=== PATIENT | male | born 1960 | race Two or more races ===

== ENCOUNTER 2017-06-14 11:48 | Inpatient (IN) | payer OTHER ==
[~2017-06-14] VITALS: Ht 177.8 cm; Wt 134.3 kg
[~2017-06-14 11:48] MED LIST: COREG CR10 MG PO; COUMADIN1 MG PO; ENALAPRIL MALE2.5 MG PO; FOLTX TABLET1 TAB PO; INDUR; LASIX20 MG PO; SIMBASTATIN; ZOCOR5 MG PO
[2017-06-14] MEDS ORDERED: METFORMIN HCL500 M2 (12:30)
== END 2017-06-19 10:38 | disposition home or self-care (01) | DRG 202 ==
LOC: ER 11:48 → MEDJ 06-15 15:18 → SEC-K 06-15 15:18 → MEDJ 06-15 15:45
PROC: 3E0F7GC Introduction of Other Therapeutic Substance into Respiratory Tract, Via Natural or Artificial Opening (ICD-10-PCS; principal; 2017-06-15)
PROC: B246ZZZ Ultrasonography of Right and Left Heart (ICD-10-PCS; 2017-06-15)
DX: J45.51 Severe persistent asthma with (acute) exacerbation (principal); J44.1 Chronic obstructive pulmonary disease with (acute) exacerbation; J44.0 Chronic obstructive pulmonary disease with (acute) lower respiratory infection; J20.9 Acute bronchitis, unspecified; I10 Essential (primary) hypertension; E66.01 Morbid (severe) obesity due to excess calories; E78.4 Other hyperlipidemia; I25.10 Atherosclerotic heart disease of native coronary artery without angina pectoris; E11.9 Type 2 diabetes mellitus without complications; Z86.73 Personal history of transient ischemic attack (TIA), and cerebral infarction without residual deficits; G47.33 Obstructive sleep apnea (adult) (pediatric); I48.0 Paroxysmal atrial fibrillation

== ENCOUNTER 2017-08-30 08:03 | Inpatient (IN) | payer OTHER ==
[~2017-08-30] VITALS: Ht 177.8 cm; Wt 131.5 kg
[~2017-08-30 08:03] MED LIST changes: +METFORMIN HCL500 M2
[2017-08-30] MEDS ORDERED: BREO ELLIPTA I1 EACH (08:21)
== END 2017-09-05 14:11 | disposition home or self-care (01) | DRG 190 ==
LOC: ER 08:03 → ICU-2 21:52 → SEC-K 09-03 09:12 → MEDJ 09-03 09:14
PROC: 4A033R1 Measurement of Arterial Saturation, Peripheral, Percutaneous Approach (ICD-10-PCS; principal; 2017-08-30)
PROC: BW21Y0Z Computerized Tomography (CT Scan) of Abdomen and Pelvis using Other Contrast, Unenhanced and Enhanced (ICD-10-PCS; 2017-08-30)
PROC: B246ZZZ Ultrasonography of Right and Left Heart (ICD-10-PCS; 2017-08-30)
PROC: 3E0F7GC Introduction of Other Therapeutic Substance into Respiratory Tract, Via Natural or Artificial Opening (ICD-10-PCS; 2017-08-30)
DX: J44.1 Chronic obstructive pulmonary disease with (acute) exacerbation (principal); A41.9 Sepsis, unspecified organism; N17.8 Other acute kidney failure; J45.41 Moderate persistent asthma with (acute) exacerbation; N39.0 Urinary tract infection, site not specified; J44.0 Chronic obstructive pulmonary disease with (acute) lower respiratory infection; E78.4 Other hyperlipidemia; E66.01 Morbid (severe) obesity due to excess calories; Z86.73 Personal history of transient ischemic attack (TIA), and cerebral infarction without residual deficits; I25.10 Atherosclerotic heart disease of native coronary artery without angina pectoris; I10 Essential (primary) hypertension; J20.9 Acute bronchitis, unspecified; E11.9 Type 2 diabetes mellitus without complications; K42.9 Umbilical hernia without obstruction or gangrene; G47.33 Obstructive sleep apnea (adult) (pediatric); I95.89 Other hypotension; B96.29 Other Escherichia coli [E. coli] as the cause of diseases classified elsewhere

== ENCOUNTER 2017-11-08 22:02 | Emergency (ER) | payer OTHER ==
[~2017-11-08] VITALS: Ht 175.3 cm; Wt 133.8 kg
[~2017-11-08 22:02] MED LIST changes: +BREO ELLIPTA I1 EACH
[2017-11-09] MEDS ORDERED: LEVAQUIN750 MG PO (03:52)
[2017-11-09] MEDS ORDERED: MUPIROCIN22 GM TOP (03:53)
[2017-11-09] MEDS ORDERED: DOLOGESIC 500-1 EACH PO (03:54)
== END 2017-11-09 03:56 | disposition home or self-care (01) ==
LOC: ER 22:02
DX: S90.32XA Contusion of left foot, initial encounter (principal); R60.0 Localized edema; W22.8XXA Striking against or struck by other objects, initial encounter; Y93.89 Activity, other specified; Y92.018 Other place in single-family (private) house as the place of occurrence of the external cause; Y99.8 Other external cause status

== ENCOUNTER 2021-06-21 20:51 | Emergency (ER) | payer OTHER ==
[~2021-06-21] VITALS: Ht 175.3 cm; Wt 122.5 kg
[~2021-06-21 20:51] MED LIST changes: +DOLOGESIC 500-1 EACH PO; +LEVAQUIN750 MG PO; +MUPIROCIN22 GM TOP
[2021-06-21] MEDS ORDERED: LANOXIN125 MCG (21:14)
[2021-06-21] MEDS ORDERED: ISOSORBIDE MON120 MG (21:14)
== END 2021-06-22 | disposition home or self-care (01) ==
LOC: ER 20:51
DX: M75.52 Bursitis of left shoulder (principal); K59.00 Constipation, unspecified

== ENCOUNTER 2022-08-05 07:09 | Outpatient (CLI) | payer OTHER ==
[~2022-08-05 07:09] MED LIST changes: +ISOSORBIDE MON120 MG; +LANOXIN125 MCG
== END 2022-08-05 07:11 | disposition home or self-care (01) ==
LOC: NUCLEAR 07:09
PROVIDERS: ATTEND Internal Medicine Cardiovascular Disease
DX: I50.9 Heart failure, unspecified (principal)
CPT/HCPCS: 78452; 93017; A9500; J0153

== ENCOUNTER 2022-11-23 15:04 | Inpatient (IN) | payer OTHER ==
[~2022-11-23] VITALS: Ht 175.3 cm; Wt 136.1 kg
--- NOTE | 2022-11-23 15:12 | NUR ---
PTE ALERTA Y ORIENTADO POR ADELSO ESFERAS LLEGA EN [place] DE [place] POR SECRETARIO DE TURNO, SE UBICA EN PACHECO #3. SE OBSERVA SUDUROSO, FRIO AL TACTO, CON DIFICULTAD RESPIRATORIA. SE COLOCA MONITOR CARDIACO, NBP Y OXIMETRIA CONTINUA. SE COLECTA MUESTRAS, SE CANALIZA SOFIA ORDEN MEDICA UTILIZADNO MEDIDAS ASEPTICAS. SE NOTIFCA ABG'S A JAMIE VILLALTA. SE NOTIFICA A SOBRE STATUS DE PTE, SABIENDO SOBRE SHARATH. PENDIENTE EVALUACION MEDICA PARA COTINUIDAD DE TRATAMIENTO.
--- NOTE | 2022-11-23 19:01 | NUR ---
PACIENTE EVALAUDO POR DR. SANCHEZ QUIEN ORDENA TRATAMIENTO, SE CANALIZ BAJO MEDIDAS ASEPTICAS, SE DULCE MARIA MUESTRAS DE DUY SOFIA ORDEN MEDICA. SE ADMINISTRAN MEDICAMENTOS SOFIA ORDEN. SE NOTIFICA A PERSONAL DE TERAPIA RESPIRATORIA.
[2022-11-23] MEDS ORDERED: ELIQUIS5 MG PO (19:05)
[2022-11-23] MEDS ORDERED: CARVEDILOL25 MG (19:06)
[2022-11-23] MEDS ORDERED: VASOTEC20 M1 PO (19:06)
[2022-11-23] MEDS ORDERED: LASIX20 MG PO (19:06)
[2022-11-23] MEDS ORDERED: LANOXIN125 MCG PO (19:07)
[2022-11-23] MEDS ORDERED: CRESTOR20 MG PO (19:07)
[2022-11-23] MEDS ORDERED: CRESTOR40 MG PO (19:07)
[2022-11-23] MEDS ORDERED: JANUVIA25 MG PO (19:08)
== END 2022-11-29 14:09 | disposition expired | DRG 291 ==
LOC: ER 15:04 → ICU-2 18:08 → MEDI 18:08
PROVIDERS: General Practice; ADMIT Internal Medicine; ATTEND Internal Medicine
PROC: B24BZZZ Ultrasonography of Heart with Aorta (ICD-10-PCS; 2022-11-24)
PROC: 02HV33Z Insertion of Infusion Device into Superior Vena Cava, Percutaneous Approach (ICD-10-PCS; 2022-11-26)
PROC: 4A12X4Z Monitoring of Cardiac Electrical Activity, External Approach (ICD-10-PCS; 2022-11-26)
PROC: 0BH17EZ Insertion of Endotracheal Airway into Trachea, Via Natural or Artificial Opening (ICD-10-PCS; principal; 2022-11-29)
DX: I11.0 Hypertensive heart disease with heart failure (principal); I46.9 Cardiac arrest, cause unspecified; J96.02 Acute respiratory failure with hypercapnia; J96.01 Acute respiratory failure with hypoxia; I24.9 Acute ischemic heart disease, unspecified; J44.1 Chronic obstructive pulmonary disease with (acute) exacerbation; I69.354 Hemiplegia and hemiparesis following cerebral infarction affecting left non-dominant side; I50.9 Heart failure, unspecified; Z79.4 Long term (current) use of insulin; I25.10 Atherosclerotic heart disease of native coronary artery without angina pectoris; G47.33 Obstructive sleep apnea (adult) (pediatric); E11.65 Type 2 diabetes mellitus with hyperglycemia; I48.91 Unspecified atrial fibrillation